=== PATIENT | male | born 1960 | race Two or more races ===

== ENCOUNTER 2019-03-25 11:48 | Emergency (ER) | payer SELFPAY ==
[~2019-03-25] VITALS: Ht 165.1 cm; Wt 86.2 kg
--- NOTE | 2019-03-25 12:06 | NUR ---
ED Nurse Note: pt ambulated to ed c/o left index finger laceration s/p tv falling on it yesterday at 1800
[2019-03-25 12:07] VITALS: BP 146/83
--- NOTE | 2019-03-25 12:45 | Emergency Room Report ---
History of Present Illness General Chief Complaint: Upper Extremity Injury Source: Patient (Jimena Brown NAdam P.AAdam) Present Illness HPI This is a 58-year-old male with no past medical history who presents with a left second finger injury onset last night at 6 PM. He reports he was lifting a heavy TV when it fell onto his finger. He reports there was bleeding for several minutes. He cleaned the area with hydrogen peroxide and applied hydrocortisone cream. He reports 5 out of 10 pain. He took naproxen 2 hours prior to arrival. Patient is right-hand dominant. (Jimena Brown N. P.A.) Allergies: Coded Allergies: No Known Allergies (Unverified , 03/25/19) Patient History Past Medical History: see triage record Reviewed Nursing Documentation: PMH: Agreed; PSxH: Agreed (Jimena Brown N. P.A.) Nursing Documentation-PMH Past Medical History: No Stated History (Jimena Brown N. P.A.) Review of Systems All Other Systems: negative except mentioned in HPI (Jimena Brown N. P.A.) Physical Exam Vital Signs Date Time Temp Pulse Resp B/P (MAP) Pulse Ox O2 Delivery O2 Flow Rate FiO2 03/25/19 12:00 98.1 94 18 146/83 (104) 99 Room Air Skin: other - Ventral aspect of the tip of the left second finger with laceration, unable to close. Bleeding controlled, no foreign bodies. Neurovascularly intact. Full range of motion. (Jimena Brown N. P.A.) Medical Decision Making PA Attestation Dr. Otero is my supervising physician whom patient management and care has been discussed with. (Jimena Brown N. P.A.) Diagnostic Impression: Primary Impression: Laceration ER Course Pt. presents to the ED c/o finger laceration onset last night. Ddx considered but are not limited to laceration, abrasion, open fracture, cellulitis Vital signs: are WNL, pt. is afebrile H&PE are most consistent with laceration with delayed presentation ORDERS: X-ray negative for fracture. ED INTERVENTIONS: Patient given tetanus shot and IM Ancef. Wound irrigated and dressed. DISCHARGE: Laceration is unable to be repaired. Will cover patient with Ancef and give a prescription for Keflex. Wound irrigated and dressed. Advised patient to follow-up either outpatient or return here in 2 to 3 days for recheck of his finger. At this time pt. is stable for d/c to home. Will provide printed patient care instructions, and any necessary prescriptions. Care plan and follow up instructions have been discussed with the patient prior to discharge. (Jimena Brown N. P.A.) Other X-Ray Diagnostic Results Other X-Ray Diagnostic Results : X-Ray ordered: Left second digit # of Views/Limited Vs Complete: 2 View Indication: Pain EP Interpretation: Yes PA Xray: Interpretation reviewed, by supervising MD, and agrees with findings. Interpretation: no dislocation, no soft tissue swelling, no fractures Impression: No acute disease (Jimena Brown N. P.A.) Last Vital Signs Date Time Temp Pulse Resp B/P (MAP) Pulse Ox O2 Delivery O2 Flow Rate FiO2 03/25/19 12:07 98.1 76 18 146/83 99 Room Air (Jimena Brown N. P.A.) Disposition: HOME, SELF-CARE Condition: Stable Scripts Cephalexin* (KEFLEX*) 500 Mg Capsule 500 MG ORAL EVERY 6 HOURS for 7 Days, #28 CAP Prov: Jimena Brown N. P.AAdam 03/25/19 Jimena Brown N. P.AAdam Mar 25, 2019 12:45 Tonia Otero M.D. Apr 03, 2019 06:26
--- NOTE | 2019-03-25 13:00 | NUR ---
ED Nurse Note: xray taken
--- NOTE | 2019-03-25 13:25 | Diagnostic Imaging Report ---
Indication: pain in finger. trauma Findings: 3 views of the left second and third digits obtained. No acute fractures, malalignment, erosions, or periosteal reaction are seen. Soft tissues are unremarkable. Impression: No acute findings.
[2019-03-25] MEDS ORDERED: CEPHALEXIN500 MG ORAL (13:26)
[2019-03-25] MEDS ORDERED: Tetanus-Diphtheria Toxoid IM ONE (13:30)
[2019-03-25] MEDS ORDERED: Tetanus/Diptheria/Pertussis IM ONE (13:32)
[2019-03-25 13:36] VITALS: BP 131/88
--- NOTE | 2019-03-25 13:37 | NUR ---
ER DISCHARGE NOTE: Patient is cleared to be discharged per ERMD, pt is aox4, on room air, with stable vital signs. pt was given dc and prescription instructions, pt was able to verbalize understanding, pt id bandremoved. pt is able to ambulate with steady gait. pt took all belongings.
== END 2019-03-25 13:37 | disposition home or self-care (01) ==
LOC: EMR 12:44
DX: S61.211A Laceration without foreign body of left index finger without damage to nail, initial encounter (principal); Z23 Encounter for immunization; W20.8XXA Other cause of strike by thrown, projected or falling object, initial encounter; Y92.9 Unspecified place or not applicable
CPT/HCPCS: 73140; 90471; 90714; 90715; 96372; 99283; J0690